=== PATIENT | female | born 1970 | race African-American/Black ===

== ENCOUNTER 2016-04-11 11:51 | Emergency (ER) | payer OTHER ==
[~2016-04-11 11:51] MED LIST: ALL DAY ALLERGY10 M3 PO; BENTYL20 MG PO; DAKIN'S MODIF1000 ML EXT; FUROSEMIDE80 MG PO; GABAPENTIN300 MG PO; GLIPIZIDE ER PO; HIBICLENS 4% L120 ML TOP; LEVAQUIN PO; LIORESAL10 MG PO; LISINOPRIL10 MG PO; LOPRESSOR PO; MOBIC7.5 MG/5 M PO; PRILOSEC20 M1 PO; VIBRAMYCIN100 M1 PO; VIT D
== END 2016-04-11 12:14 | disposition home or self-care (01) ==
LOC: CFTX 11:51
DX: G89.29 Other chronic pain (principal); M25.551 Pain in right hip; J02.0 Streptococcal pharyngitis; E11.9 Type 2 diabetes mellitus without complications; I10 Essential (primary) hypertension; J45.909 Unspecified asthma, uncomplicated
CPT/HCPCS: 82947; 96372; 99283; J1885

== ENCOUNTER 2016-09-06 20:36 | Emergency (ER) | payer OTHER ==
[~2016-09-06] VITALS: Ht 157.5 cm; Wt 186.0 kg
== END 2016-09-06 21:32 | disposition home or self-care (01) ==
LOC: CFTX 20:36 → CED 20:36 → CFTX 21:31
DX: M54.41 Lumbago with sciatica, right side (principal); E11.9 Type 2 diabetes mellitus without complications; I10 Essential (primary) hypertension
CPT/HCPCS: 96372; 99283; J1170